=== PATIENT | female | born 1960 | race African-American/Black ===

== ENCOUNTER 2016-07-23 13:36 | Emergency (ER) | payer OTHER ==
[2016-07-23 13:41] VITALS: BP 145/77; BMI 21.2
[2016-07-23] MEDS ORDERED: NS 1000 ML 1,000 ML IV ONE (15:07)
[2016-07-23 15:09] LABS: BILIRUBIN,URINE NEGATIVE (NEGATIVE); BLOOD/HEMOGLOBIN,URINE NEGATIVE (NEGATIVE); GLUCOSE, URINE NEGATIVE (NEGATIVE); KETONES,URINE NEGATIVE (NEGATIVE); LEUKOCYTE ESTERASE ,URINE 1+ (NEGATIVE); NITRITES,URINE NEGATIVE (NEGATIVE); PROTEIN,URINE 2+ (NEGATIVE); UROBILINOGEN,URINE 2+ (NORMAL)
[2016-07-23] MEDS ORDERED: TORADOL 30 MG VIAL IVP ONE (15:11)
--- NOTE | 2016-07-23 15:11 | DR.GENAD ---
HPI - PCP Primary Care Physician: CARLOTTA - Complaint/Symptoms Chief Complaint Doctors Comments: History as stated. Chief Complaint:: PATIENT STATED THAT SHE HELPED A FRIEND CLEAN OUT A POOL 2 DAYS AGO AND NOW HAS A ABCESS TO HER RIGHT FOOT. 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 - Family History History of Family Medical Conditions: Yes Family Medical History: [place], Coronary Artery Disease, Heart Failure, Hypertension - Social History Does patient currently use any type of tobacco product: Yes Have you used tobacco products in the last 12 months: Yes Type of Tobacco Use: Cigarettes Does any household member use tobacco: No Alcohol Use: Occasionally Do you use any recreational Drugs:: Yes (THC) Lives With: Family Lives Where: Home - infectious screening In the last 2 months have you had wt loss of >10#?: NO Have you had fever, night sweats or hemotysis?: No Have you traveled outside the country in the last 6 months?: No Isolation: Standard ROS - Review of Systems Eyes: No Symptoms Reported ENTM: No Symptoms Reported Respiratoy: No Symptoms Reported Cardiovascular: No Symptoms Reported Gastrointestinal/Abdominal: No Symptoms Reported Genitourinary: No Symptoms Reported Neurological: No Symptoms Reported Musculoskeletal: No Symptoms Reported Integumentary: Lesions (right dorsum of right foot) Hematologic/Lymphatic: No Symptoms Reported Endocrine: No Symptoms Reported Psychiatric: No Symptoms Reported All Other Systems: Reviewed and Negative PE - Vital Signs Vitals: Temperature 98.3 F Pulse Rate 91 Respiratory Rate 20 Blood Pressure 145/77 O2 Sat by Pulse Oximetry 100 - General Limitations: No Limitations General Appearance: Alert - Head Head Exam: Normal Inspection, Atraumatic - Eyes Eye exam: Normal Appearance, PERRL, EOMI - ENT ENT Exam: Normal Exam External Ear Exam: Normal External Inspection TM/Canal Exam: Bilateral Normal Nose Exam: Normal Nose Exam Mouth Exam: Normal Inspection Throat Exam: Normal Inspection - Neck Neck Exam: Normal Inspection - Chest Chest Inspection: Normal Inspection - Respiratory Respiratory Exam: Normal Lung Sounds Bilat Respiratory Exam: Lower Clear to Auscultation - Cardiovascular Cardiovascular Exam: Regular Rate - Abdominal Exam Abdominal Exam: Normal Inspection Abdominal Tenderness: negative: RUQ, RLQ, LUQ, LLQ, Epigastrium, Suprapubic, Diffuse, Mild, Moderate, Severe, Other - Extremities Extremities Exam: Normal Inspection - Back Back Exam: Normal Inspection - Neurologic Neurological Exam: Alert, Oriented X3, CN II-XII Intact - Psychiatric Psychiatric Exam: Normal Affect, Normal Mood - Skin Skin Exam: Other (dorsum of right foot anteriorally an erythematous macular area with a elevated papular lesion thats tender.) ROR - Labs Reviewed Laboratory Results Reviewed?: Yes (low sodium) Result Diagrams: 07/23/16 15:15 07/23/16 15:15 Laboratory: 07/23/16 14:43 Foot - Right Gram Stain - Final WBC 8.6 X10^3/uL (3.6-10.0) 07/23/16 15:15 RBC 3.58 X10^6/uL (3.5-5.4) 07/23/16 15:15 Hgb 11.5 g/dL (12.0-16.0) L 07/23/16 15:15 Hct 33.2 % (36.0-47.0) L 07/23/16 15:15 MCV 92.6 fL (80.0-100.0) 07/23/16 15:15 MCH 32.1 pg (27.0-34.0) 07/23/16 15:15 MCHC 34.7 g/dL (33.0-35.0) 07/23/16 15:15 RDW 13.6 % (11.6-16.5) 07/23/16 15:15 Plt Count 315 X10^3/uL (150.0-450.0) 07/23/16 15:15 MPV 7.8 fL (7.4-11.0) 07/23/16 15:15 Neut % 58.4 % (42.0-75.0) 07/23/16 15:15 Lymph % 28.8 % (21.0-51.0) 07/23/16 15:15 [place] % 8.0 % (0.0-13.0) 07/23/16 15:15 Eos % 4.0 % (0.9-2.9) H 07/23/16 15:15 Baso % 0.8 % (0.2-1.0) 07/23/16 15:15 Neut # 5.1 x10^3/uL (2.2-4.8) H 07/23/16 15:15 Lymph # 2.5 X10^3/uL (1.3-2.9) 07/23/16 15:15 [place] # 0.7 x10^3/uL (0.3-0.8) 07/23/16 15:15 Eos # 0.3 x10^3/uL (0.0-0.2) H 07/23/16 15:15 Baso # 0.1 X10^3/uL (0.0-0.1) 07/23/16 15:15 Absolute Nucleated RBC 0.0 /100WBC 07/23/16 15:15 Sodium 141 mmol/L (136-145) 07/23/16 15:15 Corrected Sodium TNP 07/23/16 15:15 Potassium 3.2 mmol/L (3.5-5.1) L 07/23/16 15:15 Chloride 104 mmol/L (98-107) 07/23/16 15:15 Carbon Dioxide 28.8 mmol/L (21-32) 07/23/16 15:15 BUN 6 mg/dL (7-18) L 07/23/16 15:15 Creatinine 0.96 mg/dL (0.55-1.02) 07/23/16 15:15 Est GFR (MDRD) Af Amer > 60 (>60) 07/23/16 15:15 Est GFR (MDRD) Non-Af > 60 (>60) 07/23/16 15:15 Glucose 69 mg/dL (65-99) 07/23/16 15:15 Calcium 8.7 mg/dL (8.5-10.1) 07/23/16 15:15 Corrected Calcium 9.3 mg/dL (8.5-10.1) 07/23/16 15:15 Total Bilirubin 0.30 mg/dL (0.2-1.0) 07/23/16 15:15 AST 17 Units/L (15-37) 07/23/16 15:15 ALT 20 Units/L (12-78) 07/23/16 15:15 Alkaline Phosphatase 67 Units/L (46-116) 07/23/16 15:15 C-Reactive Protein 54.70 mg/L (0-3.0) H 07/23/16 15:15 Total Protein 7.6 g/dL (6.4-8.2) 07/23/16 15:15 Albumin 3.2 g/dL (3.4-5.0) L 07/23/16 15:15 Globulin 4.4 g/dL (2.5-4.5) 07/23/16 15:15 Albumin/Globulin Ratio 0.7 Ratio (1.1-2.1) L 07/23/16 15:15 Specimen Type Clean catch urine 07/23/16 14:55 Urine Color Dark yellow (YELLOW) 07/23/16 14:55 Urine Appearance Slightly hazy (CLEAR) 07/23/16 14:55 Urine pH 5.0 (5.0 - 8.0) 07/23/16 14:55 Ur Specific [place] 1.025 (1.000-1.030) 07/23/16 14:55 Urine Protein 2+ (NEGATIVE) 07/23/16 14:55 Urine Glucose (UA) Negative (NEGATIVE) 07/23/16 14:55 Urine Ketones Negative (NEGATIVE) 07/23/16 14:55 Urine Occult Blood Negative (NEGATIVE) 07/23/16 14:55 Urine Nitrite Negative (NEGATIVE) 07/23/16 14:55 Urine Bilirubin Negative (NEGATIVE) 07/23/16 14:55 Urine Urobilinogen 2+ (NORMAL) 07/23/16 14:55 Ur Leukocyte Esterase 1+ (NEGATIVE) 07/23/16 14:55 Urine RBC 0-1 /HPF (NEGATIVE) 07/23/16 14:55 Urine WBC 5-6 /HPF (NEGATIVE) 07/23/16 14:55 Ur Squamous Epith Cells Few /HPF (NEGATIVE) 07/23/16 14:55 Amorphous Sediment Trace /HPF (NEGATIVE) 07/23/16 14:55 Urine Bacteria Trace /HPF (NEGATIVE) 07/23/16 14:55 Ur Culture Indicated? No/not indicated 07/23/16 14:55 - Diagnosis Discharge Problem: Cellulitis and abscess of foot - Discharge Plan Condition: Stable - Follow ups/Referrals Follow ups/Referrals: MD,Misc [Primary Care Provider] - 3 days - Instructions
[2016-07-23] MEDS ORDERED: NS 1000 ML 1,000 ML ONE (15:19)
[2016-07-23] MEDS ORDERED: TORADOL 30 MG VIAL ONE (15:20)
[2016-07-23] MEDS ORDERED: CLEOCIN 300 MG IV PREMIX 300 MG/50 ML BAG IV ONE (15:20)
[2016-07-23] MEDS ORDERED: CLEOCIN VIAL 600 MG ONE (15:20)
[2016-07-23 15:21] LABS: AMORPHOUS SEDIMENT,UR TRACE /HPF (NEGATIVE); APPEARANCE,URINE SLIGHTLY HAZY (CLEAR); BACTERIA,URINE TRACE /HPF (NEGATIVE); COLOR,URINE DARK YELLOW (YELLOW); RBC,URINE 0-1 /HPF (NEGATIVE); SQUAMOUS EPITHELIAL CELL,UR FEW /HPF (NEGATIVE)
[2016-07-23 15:30] LABS: BASOPHILS # (AUTO) 0.1 X10^3/uL (0.0-0.1); BASOPHILS % (AUTO) 0.8 % (0.2-1.0); EOSINOPHILS # (AUTO) 0.3 x10^3/uL (0.0-0.2); HEMATOCRIT 33.2 % (36.0-47.0); HEMOGLOBIN 11.5 g/dL (12.0-16.0); LYMPHOCYTES # (AUTO) 2.5 X10^3/uL (1.3-2.9); LYMPHOCYTES % (AUTO) 28.8 % (21.0-51.0); MEAN CORPUSCULAR HEMOGLOBIN 32.1 pg (27.0-34.0); MEAN CORPUSCULAR HGB CONC 34.7 g/dL (33.0-35.0); MEAN CORPUSCULAR VOLUME 92.6 fL (80.0-100.0); MEAN PLATELET VOLUME 7.8 fL (7.4-11.0); MONOCYTES # (AUTO) 0.7 x10^3/uL (0.3-0.8); NEUTROPHILS # (AUTO) 5.1 x10^3/uL (2.2-4.8); NEUTROPHILS % (AUTO) 58.4 % (42.0-75.0); PLATELET COUNT 315 X10^3/uL (150.0-450.0); RED BLOOD COUNT 3.58 X10^6/uL (3.5-5.4); RED CELL DISTRIBUTION WIDTH 13.6 % (11.6-16.5); WHITE BLOOD COUNT 8.6 X10^3/uL (3.6-10.0)
[2016-07-23 15:42] LABS: ALANINE AMINOTRANSFERASE 20 Units/L (12-78); ALBUMIN 3.2 g/dL (3.4-5.0); ALKALINE PHOSPHATASE 67 Units/L (46-116); ASPARTATE AMINO TRANSFERASE 17 Units/L (15-37); BLOOD UREA NITROGEN 6 mg/dL (7-18); CALCIUM 8.7 mg/dL (8.5-10.1); CARBON DIOXIDE 28.8 mmol/L (21-32); CHLORIDE 104 mmol/L (98-107); COR CA(FOR HYPOALB) 9.3 mg/dL (8.5-10.1); CREATININE 0.96 mg/dL (0.55-1.02); GLUCOSE 69 mg/dL (65-99); SODIUM 141 mmol/L (136-145); TOTAL PROTEIN 7.6 g/dL (6.4-8.2); eGFR BLACK RACES > 60 (>60); eGFR NON BLACK RACES > 60 (>60)
[2016-07-23] MEDS ORDERED: CLEOCIN VIAL 600 MG 900 MG in D5W 50 ML IV 50 ML IV SCH (16:00)
[2016-07-23] MEDS ORDERED: K-LYTE EFFERVESCENT ONE (17:41)
[2016-07-23] MEDS ORDERED: K-LYTE EFFERVESCENT PO SCH (18:00)
== END 2016-07-23 18:22 | disposition home or self-care (01) ==
LOC: ER 14:12
DX: L02.611 Cutaneous abscess of right foot (principal); L03.115 Cellulitis of right lower limb; B95.2 Enterococcus as the cause of diseases classified elsewhere
CPT/HCPCS: 36415; 80053; 81001; 85025; 86140; 87040; 87070; 87075; 87077; 87186; 87205; 96365; 96374; 96375; 99283; A4222; S0077; J1885

== ENCOUNTER 2016-10-22 20:15 | Inpatient (IN) | payer OTHER ==
[2016-10-22] MEDS ORDERED: NARCAN INJ IVP ONE ×2 (20:18→20:20)
[2016-10-22] MEDS ORDERED: ROMAZICON INJ 0.5 MG IVP ONE ×3 (20:28→22:46)
[2016-10-22] MEDS ORDERED: NS 1000 ML 2,000 ML IV ONE (20:30)
--- NOTE | 2016-10-22 20:34 | DR.DING ---
HPI - Time Seen Time seen: 20:15 - Complaint Chief Complaint Doctors Comments: Patient presented to the E/R unconscious from an overdose of medication. Patient is a known drug abuser to the staff. 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 - Family History Family Medical History: [place], Coronary Artery Disease, Heart Failure, Hypertension - Social History Do you use any recreational Drugs:: Yes (THC) ROS - Review of Systems Eyes: No Symptoms Reported, Other (pin point) ENTM: No Symptoms Reported Respiratoy: No Symptoms Reported Cardiovascular: No Symptoms Reported Gastrointestinal/Abdominal: No Symptoms Reported Genitourinary: No Symptoms Reported Neurological: No Symptoms Reported Musculoskeletal: No Symptoms Reported Integumentary: No Symptoms Reported Hematologic/Lymphatic: No Symptoms Reported Endocrine: No Symptoms Reported Psychiatric: No Symptoms Reported All Other Systems: Reviewed and Negative PE - Vital signs Vitals: Temperature 98.2 F Pulse Rate [Apical] 88 Pulse Rate 69 Respiratory Rate 20 Blood Pressure [Right Arm] 79/43 Blood Pressure 76/43 O2 Sat by Pulse Oximetry 100 - General Limitations: No Limitations General Appearance: Other (unresponsive) - Head Head Exam: Normal Inspection, Atraumatic - Eyes Eye exam: Normal Appearance, PERRL (pinpoint) Pupils: Non Reactive/Fixed: Bilateral, Size: Bilateral (3mm) Sclera/Conjunctival: Normal Inspection: Bilateral - ENT ENT Exam: Normal Exam, Mucous Membranes Dry - Neck Neck Exam: Normal Inspection, Full ROM - Chest Chest Inspection: Normal Inspection - Respiratory Respiratory Exam: Prolonged Expiratory Phase Respiratory Exam: Bilateral Clear to Auscultation - Cardiovascular Cardiovascular Exam: Bradycardia - Abdominal Exam Abdominal Exam: Normal Inspection, Normal Bowel Sounds Abdominal Tenderness: negative: RUQ, RLQ, LUQ, LLQ, Epigastrium, Suprapubic, Diffuse, Mild, Moderate, Severe, Other - Extremities Extremities Exam: Normal Inspection, Full ROM - Back Back Exam: Normal Inspection, Full ROM - Neurologic Neurological Exam: Motor Sensory Deficit Course - Treatment Treatment: Narcan x2 no response, flumazenil 0.2mg x1; became responsive- poison control contacted. - Reevaluation 1st: Improved 2nd: Improved (1250; vital signs are stable.) - Consultation Called: 22:10 (Agreed to admit for further treatment) ROR - Labs Reviewed Laboratory Results Reviewed?: Yes (low potassium;UDS: meth,benzo,THC; UA: 2+leuk ,wbc 18-20, RBC 5-7) Result Diagrams: 10/22/16 20:15 10/22/16 20:15 Laboratory: WBC 5.2 X10^3/uL (3.6-10.0) 10/22/16 20:15 RBC 3.80 X10^6/uL (3.5-5.4) 10/22/16 20:15 Hgb 12.4 g/dL (12.0-16.0) 10/22/16 20:15 Hct 36.5 % (36.0-47.0) 10/22/16 20:15 MCV 96.0 fL (80.0-100.0) 10/22/16 20:15 MCH 32.7 pg (27.0-34.0) 10/22/16 20:15 MCHC 34.1 g/dL (33.0-35.0) 10/22/16 20:15 RDW 14.1 % (11.6-16.5) 10/22/16 20:15 Plt Count 216 X10^3/uL (150.0-450.0) 10/22/16 20:15 MPV 8.4 fL (7.4-11.0) 10/22/16 20:15 Neut % 47.8 % (42.0-75.0) 10/22/16 20:15 Lymph % 39.1 % (21.0-51.0) 10/22/16 20:15 [place] % 7.1 % (0.0-13.0) 10/22/16 20:15 Eos % 5.1 % (0.9-2.9) H 10/22/16 20:15 Baso % 0.9 % (0.2-1.0) 10/22/16 20:15 Neut # 2.5 x10^3/uL (2.2-4.8) 10/22/16 20:15 Lymph # 2.0 X10^3/uL (1.3-2.9) 10/22/16 20:15 [place] # 0.4 x10^3/uL (0.3-0.8) 10/22/16 20:15 Eos # 0.3 x10^3/uL (0.0-0.2) H 10/22/16 20:15 Baso # 0.0 X10^3/uL (0.0-0.1) 10/22/16 20:15 Absolute Nucleated RBC 0.0 /100WBC 10/22/16 20:15 Sample Site Lbra 10/22/16 20:21 ABG pH 7.300 (7.35-7.45) L 10/22/16 20:21 ABG pCO2 59.0 mmHg (35.0-45.0) H* 10/22/16 20:21 ABG pO2 106.0 mmHg (80.0-100.0) H 10/22/16 20:21 ABG HCO3 29.0 mmol/L (22-26) H 10/22/16 20:21 ABG O2 Saturation 98.0 % (90-100) 10/22/16 20:21 ABG Base Excess 1.4 mmol/L (-2.0-2.0) 10/22/16 20:21 Ruben Test Na 10/22/16 20:21 A-a Gradient 70.0 mmHg 10/22/16 20:21 FiO2 35.000 10/22/16 20:21 Blood Gas Comments Carlos abg well-mtf 10/22/16 20:21 Sodium 145 mmol/L (136-145) 10/22/16 20:15 Corrected Sodium TNP 10/22/16 20:15 Potassium 3.1 mmol/L (3.5-5.1) L 10/22/16 20:15 Chloride 108 mmol/L (98-107) H 10/22/16 20:15 Carbon Dioxide 28.5 mmol/L (21-32) 10/22/16 20:15 BUN 12 mg/dL (7-18) 10/22/16 20:15 Creatinine 1.41 mg/dL (0.55-1.02) H 10/22/16 20:15 Est GFR (MDRD) Af Amer 50 (>60) L 10/22/16 20:15 Est GFR (MDRD) Non-Af 41 (>60) L 10/22/16 20:15 Glucose 96 mg/dL (65-99) 10/22/16 20:15 Calcium 8.8 mg/dL (8.5-10.1) 10/22/16 20:15 Corrected Calcium TNP 10/22/16 20:15 Phosphorus 4.5 mg/dL (2.6-4.7) 10/22/16 20:15 Magnesium 2.0 mg/dL (1.7-2.9) 10/22/16 20:15 Total Bilirubin 0.40 mg/dL (0.2-1.0) 10/22/16 20:15 AST 20 Units/L (15-37) 10/22/16 20:15 ALT 20 Units/L (12-78) 10/22/16 20:15 Alkaline Phosphatase 54 Units/L (46-116) 10/22/16 20:15 Total Protein 7.0 g/dL (6.4-8.2) 10/22/16 20:15 Albumin 3.5 g/dL (3.4-5.0) 10/22/16 20:15 Globulin 3.5 g/dL (2.5-4.5) 10/22/16 20:15 Albumin/Globulin Ratio 1.0 Ratio (1.1-2.1) L 10/22/16 20:15 Specimen Type Catherized urine 10/22/16 20:28 Urine Color [place] (YELLOW) 10/22/16 20:28 Urine Appearance Cloudy (CLEAR) 10/22/16 20:28 Urine pH 5.0 (5.0 - 8.0) 10/22/16 20:28 Ur Specific [place] 1.025 (1.000-1.030) 10/22/16 20:28 Urine Protein 2+ (NEGATIVE) 10/22/16 20:28 Urine Glucose (UA) Negative (NEGATIVE) 10/22/16 20:28 Urine Ketones 1+ (NEGATIVE) 10/22/16 20:28 Urine Occult Blood 2+ (NEGATIVE) 10/22/16 20:28 Urine Nitrite Negative (NEGATIVE) 10/22/16 20:28 Urine Bilirubin 1+ (NEGATIVE) 10/22/16 20:28 Urine Urobilinogen 2+ (NORMAL) 10/22/16 20:28 Ur Leukocyte Esterase 2+ (NEGATIVE) 10/22/16 20:28 Urine RBC 5-7 /HPF (NEGATIVE) 10/22/16 20:28 Urine WBC 18-20 /HPF (NEGATIVE) 10/22/16 20:28 Ur Squamous Epith Cells Moderate /HPF (NEGATIVE) 10/22/16 20:28 Amorphous Sediment 1+ /HPF (NEGATIVE) 10/22/16 20:28 Urine Bacteria 4+ /HPF (NEGATIVE) 10/22/16 20:28 Urine Mucus Few /HPF (NEGATIVE) 10/22/16 20:28 Ur Culture Indicated? Yes/culture set up 10/22/16 20:28 Salicylates 5.6 mg/dL (2.8-20) 10/22/16 20:15 Urine Opiates Screen Negative (NEG=<300) 10/22/16 20:28 Urine Methadone Screen Negative (NEG=<300) 10/22/16 20:28 Acetaminophen 0.0 ug/mL (10-30) L 10/22/16 20:15 Ur Barbiturates Screen Negative (NEG=<200) 10/22/16 20:28 Ur Phencyclidine Scrn Negative (NEG=<25) 10/22/16 20:28 Ur Amphetamines Screen Positive (NEG=<1000) A 10/22/16 20:28 U Benzodiazepines Scrn Positive (NEG=<200) A 10/22/16 20:28 Urine Cocaine Screen Negative (NEG=<300) 10/22/16 20:28 U Marijuana (THC) Screen Positive (NEG=<50) A 10/22/16 20:28 - XRAY XRAY Interpreted by: Radiologist (Chest: No acute cardiopuulmonary disease) - Diagnosis Discharge Problem: Substance abuse, Methamphetamine abuse Overdose of benzodiazepine Qualifiers: Encounter type: sequela Injury intent: undetermined intent Qualified Code(s): T42.4X4S - Poisoning by benzodiazepines, undetermined, sequela - Discharge Plan Condition: Stable - Follow ups/Referrals Follow ups/Referrals: ,Misc [Primary Care Provider] - 3 days - Instructions
[2016-10-22 20:41] LABS: ABG BASE EXCESS 1.4 mmol/L (-2.0-2.0)
[2016-10-22 20:41] LABS: BASOPHILS % (AUTO) 0.9 % (0.2-1.0); EOSINOPHILS # (AUTO) 0.3 x10^3/uL (0.0-0.2); EOSINOPHILS % (AUTO) 5.1 % (0.9-2.9); HEMATOCRIT 36.5 % (36.0-47.0); HEMOGLOBIN 12.4 g/dL (12.0-16.0); LYMPHOCYTES % (AUTO) 39.1 % (21.0-51.0); MEAN CORPUSCULAR HEMOGLOBIN 32.7 pg (27.0-34.0); MEAN CORPUSCULAR HGB CONC 34.1 g/dL (33.0-35.0); MEAN PLATELET VOLUME 8.4 fL (7.4-11.0); MONOCYTES # (AUTO) 0.4 x10^3/uL (0.3-0.8); MONOCYTES % (AUTO) 7.1 % (0.0-13.0); NEUTROPHILS # (AUTO) 2.5 x10^3/uL (2.2-4.8); NEUTROPHILS % (AUTO) 47.8 % (42.0-75.0); PLATELET COUNT 216 X10^3/uL (150.0-450.0); RED CELL DISTRIBUTION WIDTH 14.1 % (11.6-16.5); WHITE BLOOD COUNT 5.2 X10^3/uL (3.6-10.0)
[2016-10-22] MEDS ORDERED: ROMAZICON INJ 0.5 MG ONE ×2 (20:41→22:49)
[2016-10-22] MEDS ORDERED: NARCAN INJ ONE (20:41)
[2016-10-22 20:42] LABS: BILIRUBIN,URINE 1+ (NEGATIVE); BLOOD/HEMOGLOBIN,URINE 2+ (NEGATIVE); GLUCOSE, URINE NEGATIVE (NEGATIVE); KETONES,URINE 1+ (NEGATIVE); LEUKOCYTE ESTERASE ,URINE 2+ (NEGATIVE); NITRITES,URINE NEGATIVE (NEGATIVE); PROTEIN,URINE 2+ (NEGATIVE); UROBILINOGEN,URINE 2+ (NORMAL)
[2016-10-22 20:44] LABS: BLOOD UREA NITROGEN 12 mg/dL (7-18); CALCIUM 8.8 mg/dL (8.5-10.1); CARBON DIOXIDE 28.5 mmol/L (21-32); CHLORIDE 108 mmol/L (98-107); CREATININE 1.41 mg/dL (0.55-1.02); SODIUM 145 mmol/L (136-145); eGFR BLACK RACES 50 (>60); eGFR NON BLACK RACES 41 (>60)
[2016-10-22 20:47] LABS: PHOSPHORUS 4.5 mg/dL (2.6-4.7)
[2016-10-22 20:49] LABS: AMORPHOUS SEDIMENT,UR 1+ /HPF (NEGATIVE); APPEARANCE,URINE CLOUDY (CLEAR); BACTERIA,URINE 4+ /HPF (NEGATIVE); COLOR,URINE AMBER (YELLOW); MUCUS,URINE FEW /HPF (NEGATIVE); SQUAMOUS EPITHELIAL CELL,UR MODERATE /HPF (NEGATIVE)
[2016-10-22 20:49] LABS: ALANINE AMINOTRANSFERASE 20 Units/L (12-78); ALBUMIN 3.5 g/dL (3.4-5.0); ALKALINE PHOSPHATASE 54 Units/L (46-116); ASPARTATE AMINO TRANSFERASE 20 Units/L (15-37)
[2016-10-22] MEDS ORDERED: NS 1000 ML 3,000 ML ONE (21:13)
[2016-10-22] MEDS ORDERED: NS + KCL 40 MEQ/L 1,000 ML IV ONE (21:13)
[2016-10-22] MEDS ORDERED: NS 1000 ML 1,000 ML IV ONE (21:15)
[2016-10-22] MEDS ORDERED: DOPAMINE IV PREMIX 400 MG 400 MG/250 ML BAG IV ONE (21:26)
--- NOTE | 2016-10-22 21:35 | RAD ---
HISTORY: Overdose, unresponsive Study: Single-view chest Comparison: None Findings: The trachea is midline. The cardiac silhouette is unremarkable. The lungs are clear without focal m ass or consolidation. There is no effusion or pneumothorax. The bony thorax is grossly unremarkable . IMPRESSION: No acute cardiopulmonary disease. Reported By:
[2016-10-22] MEDS: DOPAMINE IV PREMIX 400 MG 400 MG/250 ML BAG IV PRN (21:46)
[2016-10-22] MEDS ORDERED: ROCEPHIN 1 GM IV PREMIX * OUT OF STOCK 50 ML IV ONE (22:00)
[2016-10-22] MEDS: ROCEPHIN VIAL 1 GM 1 GM in NS 50 ML IV + SPIKE MINIBAG* 50 ML IV SCH (22:26)
[2016-10-22 23:03] LABS: SALICYLATE 5.6 mg/dL (2.8-20)
[2016-10-23] MEDS: NS + KCL 20 MEQ/L 1,000 ML IV SCH ×3 (01:55→18:00)
[2016-10-23] MEDS ORDERED: NS IV PRN (02:00)
[2016-10-23] MEDS ORDERED: ROMAZICON IV PRN (02:00)
[2016-10-23] MEDS ORDERED: NS 100 ML IV 100 ML IV ONE (02:03)
[2016-10-23] MEDS ORDERED: ROMAZICON INJ 0.5 MG ONE (02:03)
[2016-10-23 02:39] VITALS: BMI 18.1
[2016-10-23] MEDS: DOPAMINE IV PREMIX 400 MG 400 MG/250 ML BAG IV PRN ×2 (03:56→11:10)
[2016-10-23 05:32] LABS: BASOPHILS % (AUTO) 0.4 % (0.2-1.0); EOSINOPHILS # (AUTO) 0.2 x10^3/uL (0.0-0.2); EOSINOPHILS % (AUTO) 2.2 % (0.9-2.9); HEMATOCRIT 37.8 % (36.0-47.0); HEMOGLOBIN 12.8 g/dL (12.0-16.0); LYMPHOCYTES % (AUTO) 11.8 % (21.0-51.0); MEAN CORPUSCULAR HEMOGLOBIN 32.5 pg (27.0-34.0); MEAN CORPUSCULAR HGB CONC 33.9 g/dL (33.0-35.0); MEAN CORPUSCULAR VOLUME 95.8 fL (80.0-100.0); MEAN PLATELET VOLUME 8.1 fL (7.4-11.0); MONOCYTES # (AUTO) 0.7 x10^3/uL (0.3-0.8); MONOCYTES % (AUTO) 7.9 % (0.0-13.0); NEUTROPHILS # (AUTO) 6.7 x10^3/uL (2.2-4.8); NEUTROPHILS % (AUTO) 77.7 % (42.0-75.0); PLATELET COUNT 172 X10^3/uL (150.0-450.0); RED BLOOD COUNT 3.94 X10^6/uL (3.5-5.4); RED CELL DISTRIBUTION WIDTH 13.9 % (11.6-16.5); WHITE BLOOD COUNT 8.6 X10^3/uL (3.6-10.0)
[2016-10-23 05:54] LABS: ALANINE AMINOTRANSFERASE 19 Units/L (12-78); ALBUMIN 3.4 g/dL (3.4-5.0); ALKALINE PHOSPHATASE 54 Units/L (46-116); ASPARTATE AMINO TRANSFERASE 20 Units/L (15-37); BLOOD UREA NITROGEN 11 mg/dL (7-18); CALCIUM 7.8 mg/dL (8.5-10.1); CARBON DIOXIDE 25.2 mmol/L (21-32); CHLORIDE 113 mmol/L (98-107); CKMB % 0.7 % (<4); COR NA(FOR HYPERGLY) 146 mmol/L (136-145); CREATINE KINASE 142 Units/L (26-192); CREATININE 0.94 mg/dL (0.55-1.02); MAGNESIUM 1.8 mg/dL (1.7-2.9); SODIUM 145 mmol/L (136-145); TROPONIN I < 0.02 ng/mL (0-1.5); eGFR BLACK RACES > 60 (>60); eGFR NON BLACK RACES > 60 (>60)
[2016-10-23] MEDS: ROCEPHIN VIAL 1 GM 1 GM in NS 50 ML IV + SPIKE MINIBAG* 50 ML IV SCH (08:18)
[2016-10-23] MEDS: SYNTHROID 88 mcg TAB PO SCH (08:19)
--- NOTE | 2016-10-23 18:06 | DR.H&P ---
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 - Family History Family Medical History: Coronary Artery Disease, Hypertension - Social History Does patient currently use any type of tobacco product: Yes Have you used tobacco products in the last 12 months: Yes Type of Tobacco Use: Cigarettes How many years tobacco product used: 5 Does any household member use tobacco: Yes Alcohol Use: DAILY Drug Use: Prescription Drugs, Marijuana - Medications Home Medications: Carisoprodol [Carisoprodol] 1 tab PO BID 10/22/16 [History Confirmed 10/23/16] Diazepam [VALIUM 5 MG *] 5 mg PO TID 10/22/16 [History Confirmed 10/23/16] Duloxetine HCl [Duloxetine HCl] 30 mg PO BID 10/22/16 [History Confirmed ] Gabapentin [NEURONTIN CAP 300 mg *] 600 mg PO TID 10/22/16 [History Confirmed ] Hydrocodone/Acetaminophen [Hydrocodon-Acetaminophn 10-325] 1 tab PO BID [History Confirmed 10/23/16] Levothyroxine Sodium 1 tab PO DAILY 10/22/16 [History Confirmed 10/23/16] Quetiapine Fumarate [SEROQUEL 200 MG *] 200 mg PO HS 10/22/16 [History Confirmed 10/23/16] Sertraline HCl [Zoloft] 100 mg PO BID 10/22/16 [History Confirmed 10/23/16] - Physical Exam Vital Signs: Temperature 98.0 F Pulse Rate [Apical] 71 Pulse Rate 69 Respiratory Rate 14 Blood Pressure [Right Arm] 126/74 Blood Pressure 76/43 O2 Sat by Pulse Oximetry 100
[2016-10-23] MEDS ORDERED: NORCO 10/325 TAB PO PRN (22:19)
[2016-10-24] MEDS: NS + KCL 20 MEQ/L 1,000 ML IV SCH ×2 (01:32→09:47)
[2016-10-24 05:23] LABS: BASOPHILS % (AUTO) 0.4 % (0.2-1.0); EOSINOPHILS # (AUTO) 0.3 x10^3/uL (0.0-0.2); EOSINOPHILS % (AUTO) 6.1 % (0.9-2.9); HEMATOCRIT 33.7 % (36.0-47.0); HEMOGLOBIN 11.7 g/dL (12.0-16.0); LYMPHOCYTES % (AUTO) 35.6 % (21.0-51.0); MEAN CORPUSCULAR HEMOGLOBIN 32.9 pg (27.0-34.0); MEAN CORPUSCULAR HGB CONC 34.8 g/dL (33.0-35.0); MEAN CORPUSCULAR VOLUME 94.6 fL (80.0-100.0); MEAN PLATELET VOLUME 8.5 fL (7.4-11.0); MONOCYTES # (AUTO) 0.3 x10^3/uL (0.3-0.8); NEUTROPHILS % (AUTO) 51.9 % (42.0-75.0); PLATELET COUNT 178 X10^3/uL (150.0-450.0); RED BLOOD COUNT 3.56 X10^6/uL (3.5-5.4); RED CELL DISTRIBUTION WIDTH 13.6 % (11.6-16.5); WHITE BLOOD COUNT 5.7 X10^3/uL (3.6-10.0)
[2016-10-24 05:50] LABS: ALANINE AMINOTRANSFERASE 16 Units/L (12-78); ALBUMIN 2.4 g/dL (3.4-5.0); ALKALINE PHOSPHATASE 44 Units/L (46-116); ASPARTATE AMINO TRANSFERASE 11 Units/L (15-37); BLOOD UREA NITROGEN 10 mg/dL (7-18); CALCIUM 7.8 mg/dL (8.5-10.1); CARBON DIOXIDE 26.7 mmol/L (21-32); CHLORIDE 109 mmol/L (98-107); COR CA(FOR HYPOALB) 9.1 mg/dL (8.5-10.1); CREATININE 0.84 mg/dL (0.55-1.02); SODIUM 140 mmol/L (136-145); TOTAL PROTEIN 5.5 g/dL (6.4-8.2); eGFR BLACK RACES > 60 (>60); eGFR NON BLACK RACES > 60 (>60)
[2016-10-24] MEDS: ROCEPHIN VIAL 1 GM 1 GM in NS 50 ML IV + SPIKE MINIBAG* 50 ML IV SCH (08:34)
[2016-10-24] MEDS: SYNTHROID 88 mcg TAB PO SCH (08:35)
[2016-10-24 12:08] VITALS: BP 134/63
== END 2016-10-24 14:00 | disposition home or self-care (01) | DRG 884 ==
LOC: ER 20:15 → ICU 10-23 00:51
PROVIDERS: ADMIT Internal Medicine; ATTEND Internal Medicine
DX: R40.4 Transient alteration of awareness (principal); T42 Poisoning by, adverse effect of and underdosing of antiepileptic, sedative- hypnotic and antiparkinsonism drugs; I95.89 Other hypotension; F15.10 Other stimulant abuse, uncomplicated; N39.0 Urinary tract infection, site not specified; E87.6 Hypokalemia; F32.89 Other specified depressive episodes; F41.8 Other specified anxiety disorders
CPT/HCPCS: 36415; 36600; 51702; 71010; 80053; 80307; 81001; 82550; 82553; 82803; 83735; 84100; 84484; 85025; 85610; 87086; 87088; 87186; 93005; 93010; 96365; 96367; 96374; 96375; 99285; A4222; G0434; G6038; G6039; J0696; J1265; J2310; J3490

== ENCOUNTER 2017-03-28 19:07 | Emergency (ER) | payer OTHER ==
[2017-03-28 19:24] VITALS: BMI 24.4
[2017-03-28 19:42] LABS: BASOPHILS # (AUTO) 0.1 X10^3/uL (0.0-0.1); BASOPHILS % (AUTO) 1.3 % (0.2-1.0); EOSINOPHILS # (AUTO) 0.3 x10^3/uL (0.0-0.2); EOSINOPHILS % (AUTO) 4.4 % (0.9-2.9); HEMOGLOBIN 12.6 g/dL (12.0-16.0); LYMPHOCYTES # (AUTO) 2.5 X10^3/uL (1.3-2.9); LYMPHOCYTES % (AUTO) 39.5 % (21.0-51.0); MEAN CORPUSCULAR HEMOGLOBIN 31.4 pg (27.0-34.0); MEAN CORPUSCULAR HGB CONC 35.1 g/dL (33.0-35.0); MEAN CORPUSCULAR VOLUME 89.4 fL (80.0-100.0); MEAN PLATELET VOLUME 7.8 fL (7.4-11.0); MONOCYTES # (AUTO) 0.3 x10^3/uL (0.3-0.8); MONOCYTES % (AUTO) 5.3 % (0.0-13.0); NEUTROPHILS # (AUTO) 3.2 x10^3/uL (2.2-4.8); NEUTROPHILS % (AUTO) 49.5 % (42.0-75.0); PLATELET COUNT 255 X10^3/uL (150.0-450.0); RED BLOOD COUNT 4.03 X10^6/uL (3.5-5.4); RED CELL DISTRIBUTION WIDTH 12.9 % (11.6-16.5); WHITE BLOOD COUNT 6.4 X10^3/uL (3.6-10.0)
[2017-03-28 20:05] LABS: ALANINE AMINOTRANSFERASE 24 Units/L (12-78); ALBUMIN 3.6 g/dL (3.4-5.0); ALKALINE PHOSPHATASE 61 Units/L (46-116); ASPARTATE AMINO TRANSFERASE 26 Units/L (15-37); BLOOD UREA NITROGEN 25 mg/dL (7-18); CALCIUM 8.5 mg/dL (8.5-10.1); CARBON DIOXIDE 25.3 mmol/L (21-32); CHLORIDE 100 mmol/L (98-107); COR NA(FOR HYPERGLY) 136 mmol/L (136-145); CREATININE 0.96 mg/dL (0.55-1.02); SODIUM 136 mmol/L (136-145); TOTAL PROTEIN 7.2 g/dL (6.4-8.2); eGFR BLACK RACES > 60 (>60); eGFR NON BLACK RACES > 60 (>60)
[2017-03-28 20:14] LABS: BILIRUBIN,URINE NEGATIVE (NEGATIVE); BLOOD/HEMOGLOBIN,URINE 1+ (NEGATIVE); GLUCOSE, URINE NEGATIVE (NEGATIVE); KETONES,URINE NEGATIVE (NEGATIVE); LEUKOCYTE ESTERASE ,URINE 1+ (NEGATIVE); NITRITES,URINE POSITIVE (NEGATIVE); PROTEIN,URINE 2+ (NEGATIVE); UROBILINOGEN,URINE NORMAL (NORMAL)
[2017-03-28 20:24] LABS: APPEARANCE,URINE CLOUDY (CLEAR); COLOR,URINE YELLOW (YELLOW)
[2017-03-28 20:25] LABS: BACTERIA,URINE 3+ /HPF (NEGATIVE); SQUAMOUS EPITHELIAL CELL,UR FEW /HPF (NEGATIVE)
[2017-03-28] MEDS ORDERED: CIPRO TAB 500 MG PO ONE ×2 (20:28→22:43)
--- NOTE | 2017-03-28 20:42 | DR.PSYCH ---
HPI - Time Seen Time seen: 20:30 - Complaint Chief Complaint Doctors Comments: Patient states that she is non suicidal or homocidal. She philippe not know why she is here. She is cooperative answers. When spouse came into room she became mute. She asked that he leave. 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 PER PAPERWORK DAUGHTER STATED PT WAS "UNSAFE TO BE AROUND PUBLIC AND HAS A DRUG PROBLEM" PT DENIES SI OR HI. 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 - Family History History of Family Medical Conditions: Yes Family Medical History: Coronary Artery Disease, Hypertension - Social History Do you use any recreational Drugs:: Yes (THC) - infectious screening Have you traveled outside the country in the last 6 months?: No ROS - Review of Systems Eyes: No Symptoms Reported ENTM: No Symptoms Reported Respiratoy: No Symptoms Reported Cardiovascular: No Symptoms Reported Gastrointestinal/Abdominal: No Symptoms Reported Genitourinary: No Symptoms Reported Neurological: No Symptoms Reported Musculoskeletal: No Symptoms Reported Integumentary: No Symptoms Reported Hematologic/Lymphatic: No Symptoms Reported Endocrine: No Symptoms Reported Psychiatric: No Symptoms Reported All Other Systems: Reviewed and Negative PE - Vitals Vitals: Temperature 97.2 F Pulse Rate [Left Radial] 80 Pulse Rate 89 Respiratory Rate 18 Blood Pressure [Right Arm] 135/80 Blood Pressure 148/96 O2 Sat by Pulse Oximetry 100 - General Limitations: No Limitations General Appearance: Alert, In No Apparent Distress - Head Head Exam: Normal Inspection, Atraumatic Head Exam Physical: Laceration - Eyes Eye exam: Normal Appearance Pupils: Regular, Round: Bilateral Sclera/Conjunctival: Normal Inspection: Bilateral - ENT ENT Exam: Normal Exam, Normal Oropharynx - Neck Neck Exam: Normal Inspection, Full ROM - Chest Chest Inspection: Normal Inspection - Respiratory Respiratory Exam: Normal Lung Sounds Bilat Respiratory Exam: Bilateral Clear to Auscultation - Cardiovascular Cardiovascular Exam: Regular Rate, Normal Rhythm - Abdominal Exam Abdominal Exam: Normal Inspection, Normal Bowel Sounds Abdominal Tenderness: negative: RUQ, RLQ, LUQ, LLQ, Epigastrium, Suprapubic, Diffuse, Mild, Moderate, Severe, Other - Extremities Extremities Exam: Normal Inspection, Full ROM - Back Back Exam: Normal Inspection, Full ROM - Neurologic Neurological Exam: Alert, Oriented X3, CN II-XII Intact Speech: Fluid Speech Cranial Nerve Exam: EOM Function (II, III, IV, ): Normal, Facial Sensation (V) : Normal Motor Strength - LUE: 2/5 Motor Strength - RUE: 2/5 Motor Strength - LLE: 2/5 Motor Strength - RLE: 2/5 Sensory Exam Upper Extremity: Light Touch: Normal, 2 Point Discrimination: Normal DTR: achilles tendon (L): 2+ - Psychiatric Psychiatric Exam: Normal Affect, Normal Mood. negative: Homicidal Ideation, Suicidal Ideation Expanded Psychiatric Exam: negative: Poor Eye Contact, Pressured Speech, Echolalia, Psychomotor Agitation, Delusional, Paranoid, Catatonic, Mute, Perseverating, Euphoric, Restlessness, Flight of Ideas, Loose Associations, Uncooperative, Refuses to Answer, Auditory Hallucinations, Visual Hallucinations , Confabulating, Other - Skin Skin Exam: Warm, Dry, Intact Course - Treatment Treatment: Patient evaluated by Mental Health, safety plan formulated. Patient is to [facility] at [facility] as a walk in patient this AM. ROR - Labs Reviewed Result Diagrams: 03/28/17 19:35 03/28/17 19:35 Laboratory: WBC 6.4 X10^3/uL (3.6-10.0) 03/28/17 19:35 RBC 4.03 X10^6/uL (3.5-5.4) 03/28/17 19:35 Hgb 12.6 g/dL (12.0-16.0) 03/28/17 19:35 Hct 36.0 % (36.0-47.0) 03/28/17 19:35 MCV 89.4 fL (80.0-100.0) 03/28/17 19:35 MCH 31.4 pg (27.0-34.0) 03/28/17 19:35 MCHC 35.1 g/dL (33.0-35.0) H 03/28/17 19:35 RDW 12.9 % (11.6-16.5) 03/28/17 19:35 Plt Count 255 X10^3/uL (150.0-450.0) 03/28/17 19:35 MPV 7.8 fL (7.4-11.0) 03/28/17 19:35 Neut % 49.5 % (42.0-75.0) 03/28/17 19:35 Lymph % 39.5 % (21.0-51.0) 03/28/17 19:35 [place] % 5.3 % (0.0-13.0) 03/28/17 19:35 Eos % 4.4 % (0.9-2.9) H 03/28/17 19:35 Baso % 1.3 % (0.2-1.0) H 03/28/17 19:35 Neut # 3.2 x10^3/uL (2.2-4.8) 03/28/17 19:35 Lymph # 2.5 X10^3/uL (1.3-2.9) 03/28/17 19:35 [place] # 0.3 x10^3/uL (0.3-0.8) 03/28/17 19:35 Eos # 0.3 x10^3/uL (0.0-0.2) H 03/28/17 19:35 Baso # 0.1 X10^3/uL (0.0-0.1) 03/28/17 19:35 Absolute Nucleated RBC 0.1 /100WBC 03/28/17 19:35 Sodium 136 mmol/L (136-145) 03/28/17 19:35 Corrected Sodium 136 mmol/L (136-145) 03/28/17 19:35 Potassium 3.7 mmol/L (3.5-5.1) 03/28/17 19:35 Chloride 100 mmol/L (98-107) 03/28/17 19:35 Carbon Dioxide 25.3 mmol/L (21-32) 03/28/17 19:35 BUN 25 mg/dL (7-18) H 03/28/17 19:35 Creatinine 0.96 mg/dL (0.55-1.02) 03/28/17 19:35 Est GFR (MDRD) Af Amer > 60 (>60) 03/28/17 19:35 Est GFR (MDRD) Non-Af > 60 (>60) 03/28/17 19:35 Glucose 113 mg/dL (65-99) H 03/28/17 19:35 Calcium 8.5 mg/dL (8.5-10.1) 03/28/17 19:35 Corrected Calcium TNP 03/28/17 19:35 Total Bilirubin 0.50 mg/dL (0.2-1.0) 03/28/17 19:35 AST 26 Units/L (15-37) 03/28/17 19:35 ALT 24 Units/L (12-78) 03/28/17 19:35 Alkaline Phosphatase 61 Units/L (46-116) 03/28/17 19:35 Total Protein 7.2 g/dL (6.4-8.2) 03/28/17 19:35 Albumin 3.6 g/dL (3.4-5.0) 03/28/17 19:35 Globulin 3.6 g/dL (2.5-4.5) 03/28/17 19:35 Albumin/Globulin Ratio 1.0 Ratio (1.1-2.1) L 03/28/17 19:35 Specimen Type Clean catch urine 03/28/17 20:02 Urine Color Yellow (YELLOW) 03/28/17 20:02 Urine Appearance Cloudy (CLEAR) 03/28/17 20:02 Urine pH 6.0 (5.0 - 8.0) 03/28/17 20:02 Ur Specific [place] 1.025 (1.000-1.030) 03/28/17 20:02 Urine Protein 2+ (NEGATIVE) 03/28/17 20:02 Urine Glucose (UA) Negative (NEGATIVE) 03/28/17 20:02 Urine Ketones Negative (NEGATIVE) 03/28/17 20:02 Urine Occult Blood 1+ (NEGATIVE) 03/28/17 20:02 Urine Nitrite Positive (NEGATIVE) 03/28/17 20:02 Urine Bilirubin Negative (NEGATIVE) 03/28/17 20:02 Urine Urobilinogen Normal (NORMAL) 03/28/17 20:02 Ur Leukocyte Esterase 1+ (NEGATIVE) 03/28/17 20:02 Urine RBC 5-7 /HPF (NEGATIVE) 03/28/17 20:02 Urine WBC 10-12 /HPF (NEGATIVE) 03/28/17 20:02 Ur Squamous Epith Cells Few /HPF (NEGATIVE) 03/28/17 20:02 Urine Bacteria 3+ /HPF (NEGATIVE) 03/28/17 20:02 Ur Culture Indicated? Yes/culture set up 03/28/17 20:02 Salicylates 4.0 mg/dL (2.8-20) 03/28/17 19:35 Urine Opiates Screen Negative (NEG=<300) 03/28/17 20:02 Urine Methadone Screen Negative (NEG=<300) 03/28/17 20:02 Acetaminophen 0.0 ug/mL (10-30) L 03/28/17 19:35 Ur Barbiturates Screen Negative (NEG=<200) 03/28/17 20:02 Ur Phencyclidine Scrn Negative (NEG=<25) 03/28/17 20:02 Ur Amphetamines Screen Positive (NEG=<1000) A 03/28/17 20:02 U Benzodiazepines Scrn Positive (NEG=<200) A 03/28/17 20:02 Urine Cocaine Screen Negative (NEG=<300) 03/28/17 20:02 U Marijuana (THC) Screen Positive (NEG=<50) A 03/28/17 20:02 Ethyl Alcohol mg/dL < 3 mg/dL (0-19.9) 03/28/17 19:35 U Ethyl Alcohol Screen Cancelled 03/28/17 19:35 - Diagnosis Discharge Problem: Illicit drug use - Discharge Plan Condition: Stable - Follow ups/Referrals Follow ups/Referrals: NFD,None [Primary Care Provider] - 3 days - Instructions
[2017-03-28 21:27] LABS: BLOOD ALCOHOL < 3 mg/dL (0-19.9)
[2017-03-29 03:13] VITALS: BP 135/80
== END 2017-03-29 09:02 | disposition home or self-care (01) ==
LOC: ER 19:29
DX: F14.90 Cocaine use, unspecified, uncomplicated (principal); B96.29 Other Escherichia coli [E. coli] as the cause of diseases classified elsewhere
CPT/HCPCS: 36415; 80053; 80307; 81001; 85025; 87086; 87088; 87186; 93005; 93010; 99282; 99285; G0434; G6038; G6039; G6040